=== PATIENT | female | born 1985 | race Two or more races ===

== ENCOUNTER 2018-04-13 10:40 | Observation (INO) | payer OTHER ==
[2018-04-13 12:27] LABS: PLATELET COUNT 253 10^3/uL (150-400)
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
== END 2018-04-13 15:55 | disposition home or self-care (01) ==
LOC: FLD 10:40
PROVIDERS: ADMIT Obstetrics & Gynecology; ATTEND Obstetrics & Gynecology
DX: Z04.1 Encounter for examination and observation following transport accident (principal); V43.52XA Car driver injured in collision with other type car in traffic accident, initial encounter; Y92.415 Exit ramp or entrance ramp of street or highway as the place of occurrence of the external cause; Y99.8 Other external cause status; Z3A.29 29 weeks gestation of pregnancy
CPT/HCPCS: 76815; G0378

== ENCOUNTER → 2018-06-03 | Outpatient (CLI) | payer OTHER | LOC: FIMAGING 07:35 | PROVIDERS: ATTEND Obstetrics & Gynecology | DX: O28.3 Abnormal ultrasonic finding on antenatal screening of mother (principal); Z3A.36 36 weeks gestation of pregnancy ==

== ENCOUNTER 2018-06-29 16:55 | Inpatient (IN) | payer OTHER ==
[2018-06-29] MEDS ORDERED: LR 500 ML IV PRN (20:36)
[2018-06-29] MEDS ORDERED: ZOLPIDEM TARTRATE 5 MG TAB PO ONE (20:38)
[2018-06-29] MEDS ORDERED: OXYTOCIN/RINGERS LACTATE 500 ML IV SCH (21:00)
--- NOTE | 2018-06-29 21:21 | GHP ---
[f rep st] PREOP HISTORY AND PHYSICAL DATE OF ADMISSION: 06/29/2018 ADMISSION DIAGNOSIS: Intrauterine at 40 and 3/7 weeks' gestation, here for induction of la bor. HISTORY: The patient is a 32-year-old 1, para 0, at 40 and 4/7 weeks' gestation. Her estima karen date of confinement is 06/26/2018, dated by a last menstrual period of 09/19/2017, consistent wit h an 8-week ultrasound. The patient initiated care at [facility] at 8 weeks, and overall has been uncomplicated. The patient had an ultrasound at 36 weeks' gestation becau se of size less than dates. Ultrasound showed estimated weight in the 13th percentile with an amniotic fluid of 14.8. She had a slight prominence at the umbilical vein and had an M consultatio n for possible umbilical varix. They stated did not meet the parameters for umbilical varix, and destiney arizmendi has just been followed with routine care. The patient is requesting induction of labor . She had a Lundberg balloon placed this evening without difficulty. PATIENT'S MEDICAL HISTORY: Significant for anemia in and scoliosis. MEDICATIONS: vitamins and iron. SURGICAL HISTORY: Patient had a colonoscopy for left-sided abdominal pain, which was unremarkable. ALLERGIES: No known drug allergies. SOCIAL HISTORY: Patient is . She moved from [place] in March 2017, and her in May 2017. She is not currently drinking, smoking, or using any drugs. FAMILY MEDICAL HISTORY: Noncontributory. 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 Periods every 21 days, lasting 4-5 days. She is a 1, p niraj 0. again was complicated by size less than dates and questionable umbilical varix, whi ch was evaluated by [facility], which was negative. Patient denies any history of any abnormal Pap smears o r sexually transmitted diseases. REVIEW OF SYSTEMS: 10-point review of systems is negative. She has positive movement. Denies any loss of fluid, any vaginal bleeding. Denies any headache, changes in vision, nausea, vomiting. PHYSICAL EXAMINATION: VITAL SIGNS: Stable. GENERAL APPEARANCE: Alert and oriented x3. NECK: Mob ile and supple. PSYCH: Appropriate affect. MUSCULOSKELETAL: Grossly intact. HEART: Rate is regu lar, regular. LUNGS: Clear to auscultation bilaterally. ABDOMEN: Gravid, nondistended, nontender. EXTREMITIES: Reveal no calf tenderness or edema. CERVICAL: She is fingertip, 50% effaced, -2 sta tion, vertex presentation. heart tracing is category 1. She is having occasional contractions . LABS: Blood type AB positive. Antibody screen negative. Rubella non-immune. GBS is negat zara. HBsAg negative. Her 50 g glucose is 105. HIV is negative. She had negative testing and a negative alpha fetoprotein. She tested positive for hemoglobinopathy; the father of the baby tested negative. ASSESSMENT AND PLAN: 32-year-old 1, para 0, at 40 and 3/7 weeks' gestation, here for inducti on of labor. She has opted to stay overnight. A Lundberg catheter was placed. She will be started on Pitocin in the morning. /[id number]/MODL
[2018-06-30 06:01] LABS: PLATELET COUNT 265 10^3/uL (150-400)
[2018-06-30] MEDS ORDERED: OLIVE OIL 118 ML BTL ONE (06:03)
[2018-06-30] MEDS ORDERED: LIDOCAINE 1% 300 MG/30 ML SDV ONE (06:03)
[2018-06-30] MEDS ORDERED: OXYTOCIN 10 UNIT/ML VIAL ONE (06:04)
[2018-06-30] MEDS ORDERED: MISOPROSTOL 200 MCG TAB ONE (06:04)
[2018-06-30] MEDS ORDERED: AMMONIA AROMATIC 1 EACH AMP IH ONE (06:04)
[2018-06-30] MEDS ORDERED: TERBUTALINE SULFATE 1 MG/ML VIAL ONE (06:04)
[2018-06-30] MEDS ORDERED: fentaNYL 100 MCG/2 ML INJ ONE ×3 (07:18→16:15)
[2018-06-30] MEDS ORDERED: PHENYLEPHRINE HCL 100 MCG/ML SYR ONE (07:18)
[2018-06-30] MEDS ORDERED: BUPIVACAINE 0.25% 30 ML SDV ONE ×2 (07:18→16:14)
[2018-06-30] MEDS ORDERED: PHENYLEPHRINE HCL 100 MCG/ML SYR IVP PRN (08:24)
[2018-06-30] MEDS ORDERED: ONDANSETRON 4 MG/2 ML VIAL IVP PRN (08:24)
--- NOTE | 2018-06-30 08:29 | PREANESOB ---
Obstetric Pre-Anesthesia Info - General Info Proposed Procedure: Labor and delivery with pitocin. : 1 Para: 0 LUIS: 06/26/18 Gestational Age: 40 week(s) and 3 day(s) - Info Status: Postmature Monitors: External FHR Baseline (bpm): 130 FHR Pattern: Reassuring - Labor Status Cervical Dilation per last OB SVE: 2 Pitocin: In Use Indications for Labor Analgesia: Induction of Labor, Pain Control Labor Epidural: Proposed Anesthesia ROS: No anesthesia. Allergies/Adverse Reactions: Allergy/AdvReac Type Severity Reaction Status Date / Time No Allergies [NKDA] Allergy Verified 04/13/18 11:35 Home Medications: Medication Instructions Recorded Vit27&Calcium/Iron/FA 1 tab PO DAILY 04/13/18 [] Visit Medications: Generic Name Dose Route Start Last Admin Trade Name Freq PRN Reason Stop Dose Admin Oxytocin/Lactated Ringer's 500 mls @ 0 mls/hr 06/29/18 21:00 06/30/18 06:11 Pitocin 30 Units/Lr (Premix) IV 12/26/18 20:59 500 mls CONT QUENTIN Administration Protocol Per Protocol Discontinued Medications Generic Name Dose Route Start Last Admin Trade Name Freq PRN Reason Stop Dose Admin Ammonia (Aromatic Spirit) Confirm 06/30/18 06:04 Ammonia Aromatic Administered 06/30/18 06:05 Dose 1 each IH .STK-MED ONE Bupivacaine HCl Confirm 06/30/18 07:18 Sensorcaine 0.25% Sdv Administered 06/30/18 07:19 Dose 30 ml .ROUTE .STK-MED ONE Fentanyl Confirm 06/30/18 07:18 Sublimaze Administered 06/30/18 07:19 Dose 100 mcg .ROUTE .STK-MED ONE Fentanyl Confirm 06/30/18 07:28 Sublimaze Administered 06/30/18 07:29 Dose 100 mcg .ROUTE .STK-MED ONE Lactated Ringer's 500 mls @ 500 mls/hr 06/29/18 20:36 06/30/18 06:12 Lr IV 06/30/18 20:36 500 mls PRN PRN Administration Maternal Hypotension Lidocaine HCl Confirm 06/30/18 06:03 Lidocaine Hcl 1% Administered 06/30/18 06:04 Dose 300 mg .ROUTE .STK-MED ONE Misoprostol Confirm 06/30/18 06:04 Cytotec Administered 06/30/18 06:05 Dose 1,000 mcg .ROUTE .STK-MED ONE [place] Oil Confirm 06/30/18 06:03 Sweet Oil Administered 06/30/18 06:04 Dose 118 ml .ROUTE .STK-MED ONE Oxytocin Confirm 06/30/18 06:04 Pitocin Administered 06/30/18 06:05 Dose 40 unit .ROUTE .STK-MED ONE Phenylephrine HCl Confirm 06/30/18 07:18 Neosynephrine Administered 06/30/18 07:19 Dose 1,000 mcg .ROUTE .STK-MED ONE Terbutaline Sulfate Confirm 06/30/18 06:04 Brethine Administered 06/30/18 06:05 Dose 1 mg .ROUTE .STK-MED ONE Zolpidem Tartrate 5 mg 06/29/18 20:38 06/29/18 22:20 Ambien PO 06/29/18 20:39 5 mg ONCE ONE Administration - Anesthesia History Response to Local Anesthetics: Normal Anesthesia & Operative History: No Prior Problems Family Anesthesia History: Negative - Social History Substance Use/Abuse: Denies - Vital Signs Blood Pressure: 126/83 Heart Rate: 64 Height/Weight (Nursing): Height 165.1 cm - Focused Exam Neck exam: FROM Mallampati Score: Class 1 Mouth exam: normal dental/mouth exam Pulmonary: no respiratory distress Cardiovascular: regular rate and rhythym Labs: 06/30/18 05:35 Patient ABO/Rh AB POSITIVE 06/30/18 05:35 - Plan Anesthetic Plan: FELICITY Consent Signed and on Chart: Yes Patient/Guardian Understands and Agrees to Plan: Yes Urgent/Emergent Case: Dc ahn completed preop but documented later for safe timely pt care
[2018-06-30] MEDS ORDERED: fentaNYL 200 MCG, BUPIVACAINE 0.5% 20 ML in NS 100 ML EP SCH (08:30)
[2018-06-30] MEDS ORDERED: LR 500 ML IV SCH (08:30)
[2018-06-30] MEDS ORDERED: fentaNYL 2MCG/ML/BUP 0.1% RTU 100 ML EP SCH (08:30)
--- NOTE | 2018-06-30 08:30 | POSTANESTH ---
Post Anesthetic Evaluation Cardiovascular Status: Normal, Stable, Similar to Pre-Op Cond Respiratory Status: Normal, Stable, Similar to Pre-op Cond. Level of Consciousness/Mental Status: Can Participate in Eval, Alert and Oriented Pain Control: Adequate, Prn Tx Ordered Nausea/Vomiting Control: Adequate, Prn Tx Ordered Complications Possibly Related to Anesthesia: None Noted
--- NOTE | 2018-06-30 08:38 | OBPROG ---
Labor Progress Note Assessment/Plan: Assessment: 32 y/o @ 40 4/7 weeks elective IOL Plan: Pt is now comfortable with her epidural. Continue pitocin per protocol and I will check her in about 2 hours and likely AROM. status is reassuring. 06/30/18 08:38 Subjective/Intrapartum Course: 06/30/18 08:35 Pt just received her epidural and is feeling better. She did get some rest overnight, but felt cramping and contractions and she was getting uncomfortable. Objective: 06/30/18 05:35 Patient ABO/Rh AB POSITIVE 06/30/18 05:35 Temp Pulse Resp BP Pulse Ox 64 126/83 H 06/30/18 08:29 06/30/18 08:29 - SVE Dilation (cm): 3 Effacement (%): 90 Station: -2 Membranes: Intact - Contraction Pattern Assessment Current Contraction Pattern: Regular (Q 2-4) - FHR Assessment Shay FHR (bpm): 120 FHR Pattern Variability: Moderate FHR Category: 1 - AP Antepartum Course: 06/30/18 08:36 No significant pre risk factors Oxytocin Orders Assessment - Pre-Induction/Augmentation Assessment Gestational Age: 40 week(s) and 3 day(s) ICD10 Worksheet Patient Problems: Problems Problem Status Onset Term Acute
--- NOTE | 2018-06-30 13:28 | OBPROG ---
Labor Progress Note Assessment/Plan: Assessment: 32 y/o @ 40 4/7 weeks elective IOL Plan: Pitocin is now at 16 mUnits. She has made little cervical change. AROM now with thick meconium, hopefully with augment pitocin. status is reassuring. 06/30/18 08:38 06/30/18 13:27 Subjective/Intrapartum Course: 06/30/18 08:35 Pt just received her epidural and is feeling better. She did get some rest overnight, but felt cramping and contractions and she was getting uncomfortable. 06/30/18 13:25 Pt is overall comfortable with her epidural. She reports occasionally feeling contractions. She has pushed her bolus button which is helpful. Objective: 06/30/18 05:35 Patient ABO/Rh AB POSITIVE 06/30/18 05:35 Temp Pulse Resp BP Pulse Ox 64 126/83 H 06/30/18 08:29 06/30/18 08:29 - SVE Dilation (cm): 3 Effacement (%): 90 Station: -2 Membranes: AROM, Intact Amniotic Fluid Color: Thick Meconium - Contraction Pattern Assessment Current Contraction Pattern: Regular (Q 2-4) - FHR Assessment Shay FHR (bpm): 120 FHR Pattern Variability: Moderate FHR Category: 1 - Procedures Non-surgical Procedures: Amniotomy - AP Antepartum Course: 06/30/18 08:36 No significant pre marleni risk factors Oxytocin Orders Assessment - Pre-Induction/Augmentation Assessment Gestational Age: 40 week(s) and 3 day(s) ICD10 Worksheet Patient Problems: Problems Problem Status Onset Term Acute
--- NOTE | 2018-06-30 16:11 | OBPROG ---
Labor Progress Note Assessment/Plan: Assessment: 32 y/o @ 40 4/7 weeks elective IOL Plan: Pitocin is now at 18 mUnits. We will dose her epidural now and continue pitocin to dose adequate labor. status reassuring. 06/30/18 08:38 06/30/18 13:27 06/30/18 16:06 Subjective/Intrapartum Course: 06/30/18 08:35 Pt just received her epidural and is feeling better. She did get some rest overnight, but felt cramping and contractions and she was getting uncomfortable. 06/30/18 13:25 Pt is overall comfortable with her epidural. She reports occasionally feeling contractions. She has pushed her bolus button which is helpful. 06/30/18 16:05 Pt is having left sided discomfort with contractions. Objective: 06/30/18 05:35 Patient ABO/Rh AB POSITIVE 06/30/18 05:35 Temp Pulse Resp BP Pulse Ox 64 126/83 H 06/30/18 08:29 06/30/18 08:29 - SVE Dilation (cm): 6 Effacement (%): 90 Station: 0 Membranes: AROM, Intact Amniotic Fluid Color: Thick Meconium - Contraction Pattern Assessment Current Contraction Pattern: Regular (Q 2-3) - FHR Assessment Shay FHR (bpm): 120 FHR Pattern Variability: Moderate FHR Category: 1 - Procedures Non-surgical Procedures: Amniotomy - AP Antepartum Course: 06/30/18 08:36 No significant pre marleni risk factors Oxytocin Orders Assessment - Pre-Induction/Augmentation Assessment Gestational Age: 40 week(s) and 3 day(s) ICD10 Worksheet Patient Problems: Problems Problem Status Onset Term Acute
[2018-06-30] MEDS ORDERED: SIMETHICONE 80 MG TAB CHEW PO PRN (19:30)
[2018-06-30] MEDS ORDERED: oxyCODONE IR 5 MG TAB PO PRN (19:30)
[2018-06-30] MEDS ORDERED: HYDROCORTISONE 0.5% CREAM TP PRN (19:30)
--- NOTE | 2018-06-30 19:35 | OBDEL ---
Info Type: Vaginal Presentation at Delivery: Vertex L&D Analgesia/Anesthesia Type: Epidural GBS+: No Intrapartum Medications: Generic Name Dose Route Start Last Admin Trade Name Freq PRN Reason Stop Dose Admin Oxytocin/Lactated Ringer's 500 mls @ 0 mls/hr 06/29/18 21:00 06/30/18 06:11 Pitocin 30 Units/Lr (Premix) IV 12/26/18 20:59 500 mls CONT QUENTIN Administration Protocol Per Protocol Fentanyl 200 mcg/ Bupivacaine 100 mls @ 0 mls/hr 06/30/18 08:30 06/30/18 08: 45 HCl 20 ml/ Sodium Chloride EP 07/10/18 08:29 100 mls CONT QUENTIN Administration Protocol As Directed Discontinued Medications Generic Name Dose Route Start Last Admin Trade Name Freq PRN Reason Stop Dose Admin Lactated Ringer's 500 mls @ 500 mls/hr 06/29/18 20:36 06/30/18 06:12 Lr IV 06/30/18 20:36 500 mls PRN PRN Administration Maternal Hypotension Zolpidem Tartrate 5 mg 06/29/18 20:38 06/29/18 22:20 Ambien PO 06/29/18 20:39 5 mg ONCE ONE Administration - Infant Care Provider Regulatory Submissions Associate/FLORAL DEPARTMENT SPECIALIST: Yoly Henderson - Hospital Course Intrapartum: 06/30/18 08:35 Pt just received her epidural and is feeling better. She did get some rest overnight, but felt cramping and contractions and she was getting uncomfortable. 06/30/18 13:25 Pt is overall comfortable with her epidural. She reports occasionally feeling contractions. She has pushed her bolus button which is helpful. 06/30/18 16:05 Pt is having left sided discomfort with contractions. Indications for Delivery: Elective (IOL @ 40 /) Vaginal Delivery - Delivery Provider Delivery Physician/CNM: Loreto Lyons - Labor and Delivery Onset of Contractions Date: 06/30/18 Onset of Contractions Time: 11:15 Onset of Contractions Type: Induced Rupture of Membranes Date: 06/30/18 Rupture of Membranes Time: 13:20 Rupture of Membranes Type: Artificial Amniotic Fluid Color: Thick Meconium Dilation Complete Date: 06/30/18 Dilation Complete Time: 18:58 Placenta Delivery Date: 06/30/18 Placenta Delivery Time: 19:15 Total Hours of Labor: 8 Non-surgical Procedures: Amniotomy Laceration: 2nd Degree Repair: 2-0, Vicryl Vaginal Sponge Count Correct: Yes Vaginal Needle Count Correct: Yes Vaginal Sweep Performed: Yes EBL: 300 Delivery Events: None - Medications Labor Augmentation/Induction Methods Used: Pitocin Labor Augmentation/Induction Indication: Elective (post term 40 4/7 weeks) Data LUIS: 06/26/18 Gestational Age: 40 week(s) and 4 day(s) Shay Delivery Date: 06/30/18 Delivery Time: 19:11 Sex of Infant: Male Score (1 Min): 8 Score (5 Min): 9 ICD10 Worksheet Patient Problems: Problems Problem Status Onset (spontaneous vaginal delivery) Acute Term Acute - ICD10 Problem Qualifiers (1) (spontaneous vaginal delivery)
[2018-06-30] MEDS: IBUPROFEN 600 MG TAB PO SCH (20:05)
[2018-07-01] MEDS: IBUPROFEN 600 MG TAB PO SCH ×4 (01:54→21:41)
[2018-07-01] MEDS: ACETAMINOPHEN 325 MG TAB PO SCH ×4 (02:54→21:41)
[2018-07-01] MEDS: DOCUSATE SODIUM 100 MG CAP PO PRN ×2 (08:43→21:40)
--- NOTE | 2018-07-01 10:19 | OBPP ---
Progress Note Assessment/Plan: Assessment: 32 y/o s/p at 40.4 weeks ega 2nd degree perineal laceration Plan: Routine PP care Anticipate D/C home tomorrow 07/01/18 10:49 07/01/18 11:34 Subjective/ Course: 07/01/18 11:29 Patient tired but doing well this morning. Reports lochia to be light, pain controlled with oral medication, tolerating regular diet and voiding. is going well. Objective: 06/30/18 05:35 Patient ABO/Rh AB POSITIVE 06/30/18 05:35 Temp Pulse Resp BP Pulse Ox 36.8 C 78 16 116/81 H 95 07/01/18 07:30 07/01/18 07:30 07/01/18 07:30 07/01/18 07:30 07/01/18 07:30 Uterine Position/Fundal Height: Umbilicus -1 Uterine Tone: Firm Physical Exam - Physical Exam EENT: normal ENT inspection Neck: non-tender Respiratory: lungs clear Cardiac/Chest: regular rate, rhythm, edema (scant lower ext edema) Abdomen: normal bowel sounds Extremities: normal range of motion Back: Normal inspection Skin: normal color Neuro/Psych: alert, normal mood/affect, oriented x 3
[2018-07-02] MEDS: ACETAMINOPHEN 325 MG TAB PO SCH (03:41)
[2018-07-02] MEDS: IBUPROFEN 600 MG TAB PO SCH ×2 (03:42→09:58)
[2018-07-02 09:23] VITALS: BP 119/80
[2018-07-02] MEDS ORDERED: MEASLES,MUMPS&RUBELLA VACC/PF 0.5 ML VIAL SC ONE (10:03)
--- NOTE | 2018-07-02 10:03 | OBPP ---
Progress Note Assessment/Plan: Assessment: ppd# 2 s/p uncomplicated post course breast feeding rubella non immune Plan: routine post care and discharge instructions mmr vaccine prior to dc 07/02/18 10:01 Subjective/ Course: 07/01/18 11:29 Patient tired but doing well this morning. Reports lochia to be light, pain controlled with oral medication, tolerating regular diet and voiding. is going well. 07/02/18 10:02 patient is doing well. pain is well controlled. normal lochia. denies headache and changes in vision. breast feeding is going well. voiding without difficulty. no issues. Objective: 06/30/18 05:35 Patient ABO/Rh AB POSITIVE 06/30/18 05:35 Temp Pulse Resp BP Pulse Ox 37.6 C 66 16 119/80 94 07/02/18 08:00 07/02/18 08:00 07/02/18 08:00 07/02/18 08:00 07/02/18 08:00 Physical Exam - Physical Exam Neck: non-tender, full range of motion Respiratory: chest non-tender, lungs clear, normal breath sounds Cardiac/Chest: normal peripheral pulses, regular rate, rhythm Abdomen: normal bowel sounds, non-tender Extremities: normal range of motion, non-tender, normal inspection, normal capillary refill Skin: normal color, warm/dry Neuro/Psych: no motor/sensory deficits, alert, normal mood/affect, oriented x 3
--- NOTE | 2018-07-02 10:08 | OBGCSDC ---
General Delivery Information - General Info : 1 Para: 1 Abortions: 0 Type: Vaginal L&D Analgesia/Anesthesia Type: Epidural Admission Date: 06/30/18 Labs: Patient ABO/Rh AB POSITIVE 06/30/18 05:35 Hct 37.1 % (38.0-47.0) L 06/30/18 05:35 - Hospital Course Antepartum: 06/30/18 08:36 No significant pre risk factors Intrapartum: 06/30/18 08:35 Pt just received her epidural and is feeling better. She did get some rest overnight, but felt cramping and contractions and she was getting uncomfortable. 06/30/18 13:25 Pt is overall comfortable with her epidural. She reports occasionally feeling contractions. She has pushed her bolus button which is helpful. 06/30/18 16:05 Pt is having left sided discomfort with contractions. : 07/01/18 11:29 Patient tired but doing well this morning. Reports lochia to be light, pain controlled with oral medication, tolerating regular diet and voiding. is going well. 07/02/18 10:02 patient is doing well. pain is well controlled. normal lochia. denies headache and changes in vision. breast feeding is going well. voiding without difficulty. no issues. Vaginal - Delivery Provider Delivery Physician/CNM: Loreto Lyons - Diagnosis Labor: Induced Rupture of Membranes Type: Artificial Amniotic Fluid Color: Thick Meconium Laceration: 2nd Degree Repair: 2-0, Vicryl Delivery Events: None - Procedures Non-surgical Procedures: Amniotomy - Delivery Non-surgical Procedures: Amniotomy EBL: 300 [place] Data LUIS: 06/26/18 Gestational Age: 40 week(s) and 6 day(s) Shay Delivery Date: 06/30/18 Delivery Time: 19:11 Sex of Infant: Male [place] Weight (gm): 3256 g Score (1 Min): 8 Score (5 Min): 9 Discharge Information - Discharge Information Condition: Good Instruction/Follow Up: Four Weeks (post mood check), Six Weeks (post visit)
== END 2018-07-02 12:30 | disposition home or self-care (01) | DRG 775 ==
LOC: FLD 16:55 → OBSVTOIN 06-30 09:53 → FOB 06-30 21:44
PROVIDERS: ADMIT Obstetrics & Gynecology; ATTEND Obstetrics & Gynecology
DX: O48.0 Post-term pregnancy (principal); O77.0 Labor and delivery complicated by meconium in amniotic fluid; O70.1 Second degree perineal laceration during delivery; Z3A.40 40 weeks gestation of pregnancy; Z37.0 Single live birth
CPT/HCPCS: G0378; J2370; J2590; J3010; J3105